=== PATIENT | male | born 1980 | race African-American/Black ===

== ENCOUNTER 2021-06-05 19:36 | Inpatient (IN) | payer OTHER ==
[2021-06-05] MEDS ORDERED: NITROGLYCERIN SUBLINGUAL 1/150 0.4 MG TAB SL ONE (20:07)
[2021-06-05] MEDS ORDERED: amLODIPine BESYLATE 5 MG TABLET (FP) PO ONE (20:08)
[2021-06-05] MEDS ORDERED: VALSARTAN 40 MG TABLET PO SCH (20:15)
[2021-06-05] MEDS ORDERED: VALSARTAN 80 MG TABLET ONE (21:19)
[2021-06-05] MEDS ORDERED: NITROGLYCERIN SUBLINGUAL 1/150 0.4 MG TAB SL PRN (21:20)
[2021-06-05 21:56] LABS: BASO % 1.1 % (0-2.0); EOS % 0.9 % (0-4.5); HEMATOCRIT 42.6 % (35.4-49); HEMOGLOBIN 13.3 GM/dL (11.7-16.9); MCH 20.3 pg (25.7-33.7); MCHC 31.3 g/dl (32.0-35.9); MEAN PLT VOLUME 8.4 fl (7.5-11.1); MONO % 8.2 % (3.8-10.2); NEUT % 67.8 % (42.8-82.8); PLATELET COUNT 231 10^3/uL (134-434); RBC 6.56 M/mm3 (4.00-5.60); WHITE BLOOD COUNT 11.3 K/mm3 (4.0-10.0)
[2021-06-05] MEDS ORDERED: HYDROCHLOROTHIAZIDE 50 MG TABLET PO ONE (21:59)
[2021-06-05] MEDS ORDERED: CARVEDILOL 25 MG TABLET (FP) PO ONE (22:00)
[2021-06-05 22:03] LABS: INR 1.09 (0.83-1.09); PROTHROMBIN TIME (PATIENT) 13.2 SEC (9.7-13.0)
[2021-06-05] MEDS ORDERED: CARVEDILOL 12.5 MG TABLET (FP) ONE (22:05)
[2021-06-05] MEDS ORDERED: ASPIRIN 81 MG CHEWABLE TABLETS PO ONE (22:06)
[2021-06-05] MEDS ORDERED: HYDROCHLOROTHIAZIDE 25 MG TABLET (FP) ONE (22:07)
[2021-06-05 22:17] LABS: ALBUMIN 3.8 g/dl (3.4-5.0); BLOOD UREA NITROGEN 18.6 mg/dL (7-18)
[2021-06-05] MEDS ORDERED: ASPIRIN 81 MG CHEWABLE TABLETS ONE (22:18)
[2021-06-05 22:20] LABS: CREATININE 1.5 mg/dL (0.55-1.3)
[2021-06-05 22:21] LABS: BILIRUBIN,TOTAL 0.5 mg/dL (0.2-1)
[2021-06-05 23:38] LABS: ANISOCYTOSIS 3+; MACROCYTOSIS 0; PLATELET ESTIMATE NORMAL
[2021-06-06 05:41] LABS: BASO % 0.5 % (0-2.0); EOS % 1.2 % (0-4.5); HEMATOCRIT 39.7 % (35.4-49); HEMOGLOBIN 12.8 GM/dL (11.7-16.9); LYMPH % 18.8 % (8-40); MCH 21.1 pg (25.7-33.7); MCHC 32.3 g/dl (32.0-35.9); MEAN CELL VOLUME 65.5 fl (80-96); MEAN PLT VOLUME 8.8 fl (7.5-11.1); MONO % 8.9 % (3.8-10.2); NEUT % 70.6 % (42.8-82.8); PLATELET COUNT 215 10^3/uL (134-434); RBC 6.06 M/mm3 (4.00-5.60); RDW 16.9 % (11.9-15.9); WHITE BLOOD COUNT 10.8 K/mm3 (4.0-10.0)
[2021-06-06 06:25] LABS: BASO % 0.4 % (0-2.0); EOS % 1.4 % (0-4.5); HEMATOCRIT 40.7 % (35.4-49); HEMOGLOBIN 12.9 GM/dL (11.7-16.9); LYMPH % 20.2 % (8-40); MCH 20.8 pg (25.7-33.7); MCHC 31.6 g/dl (32.0-35.9); MEAN CELL VOLUME 65.9 fl (80-96); MEAN PLT VOLUME 8.7 fl (7.5-11.1); MONO % 9.6 % (3.8-10.2); NEUT % 68.4 % (42.8-82.8); PLATELET COUNT 231 10^3/uL (134-434); RBC 6.17 M/mm3 (4.00-5.60); RDW 16.9 % (11.9-15.9); WHITE BLOOD COUNT 11.2 K/mm3 (4.0-10.0)
[2021-06-06 06:34] LABS: CALCIUM 8.7 mg/dL (8.5-10.1)
[2021-06-06 06:35] LABS: BLOOD UREA NITROGEN 19.5 mg/dL (7-18); MAGNESIUM 2.5 mg/dL (1.8-2.4)
[2021-06-06 06:38] LABS: CREATININE 1.5 mg/dL (0.55-1.3); PHOSPHOROUS 4.8 mg/dL (2.5-4.9)
[2021-06-06 08:16] LABS: PH,URINE 7.5 (5.0-8.0); URINE APPEARANCE CLEAR; URINE BILIRUBIN NEGATIVE (NEGATIVE); URINE COLOR YELLOW; URINE GLUCOSE (UA) NEGATIVE (NEGATIVE); URINE KETONE NEGATIVE (NEGATIVE); URINE LEUK ESTERASE NEGATIVE (NEGATIVE); URINE NITRITE NEGATIVE (NEGATIVE); URINE PROTEIN NEGATIVE (NEGATIVE); URINE UROBILINOGEN 0.2 mg/dL (0.2-1.0)
[2021-06-06] MEDS ORDERED: amLODIPine BESYLATE 5 MG TABLET (FP) ONE (09:52)
[2021-06-06] MEDS ORDERED: CARVEDILOL 12.5 MG TABLET (FP) ONE (09:53)
[2021-06-06] MEDS: CARVEDILOL 25 MG TABLET (FP) PO SCH ×2 (09:56→21:28)
[2021-06-06] MEDS: amLODIPine BESYLATE 5 MG TABLET (FP) PO SCH (09:56)
[2021-06-06] MEDS: HYDROCHLOROTHIAZIDE 12.5 MG CAPSULE (FP) PO SCH (09:56)
[2021-06-06] MEDS ORDERED: amLODIPine BESYLATE 5 MG TABLET (FP) PO SCH (10:00)
[2021-06-06] MEDS ORDERED: RHO(D) IMMUNE GLOBULIN 1,500 UNIT DISP.SYRIN IM ONE ×2 (13:06)
[2021-06-06 15:58] VITALS: BMI 35.9
[2021-06-06] MEDS: LISINOPRIL 20 MG TABLET PO SCH (21:28)
[2021-06-06] MEDS: ROSUVASTATIN CA 20 MG TABLET (FP) PO SCH (21:28)
[2021-06-06] MEDS: HEPARIN NA (PORCINE) 5,000 UNITS/ML 1ML VIAL SQ SCH (21:37)
[2021-06-06] MEDS ORDERED: LISINOPRIL 20 MG TABLET PO SCH (22:00)
[2021-06-07] MEDS: HEPARIN NA (PORCINE) 5,000 UNITS/ML 1ML VIAL SQ SCH ×3 (06:13→21:17)
[2021-06-07 09:40] LABS: BASO % 0.3 % (0-2.0); HEMATOCRIT 42.5 % (35.4-49); HEMOGLOBIN 13.6 GM/dL (11.7-16.9); LYMPH % 19.5 % (8-40); MCH 20.9 pg (25.7-33.7); MEAN CELL VOLUME 65.4 fl (80-96); MEAN PLT VOLUME 8.9 fl (7.5-11.1); MONO % 6.1 % (3.8-10.2); NEUT % 72.1 % (42.8-82.8); PLATELET COUNT 237 10^3/uL (134-434); WHITE BLOOD COUNT 9.1 K/mm3 (4.0-10.0)
[2021-06-07] MEDS: HYDROCHLOROTHIAZIDE 12.5 MG CAPSULE (FP) PO SCH (09:42)
[2021-06-07] MEDS: ASPIRIN COATED 81 MG TABLET.EC PO SCH (09:42)
[2021-06-07] MEDS: CARVEDILOL 25 MG TABLET (FP) PO SCH ×2 (09:42→21:17)
[2021-06-07] MEDS: amLODIPine BESYLATE 5 MG TABLET (FP) PO SCH (09:42)
[2021-06-07 10:23] LABS: CHLORIDE 101 mmol/L (98-107); SODIUM 138 mmol/L (136-145)
[2021-06-07 11:16] LABS: ANION GAP 6 MMOL/L (8-16); CO2 32 mmol/L (21-32)
[2021-06-07 11:28] LABS: CALCIUM 9.2 mg/dL (8.5-10.1)
[2021-06-07 11:29] LABS: ALBUMIN 3.5 g/dl (3.4-5.0); BLOOD UREA NITROGEN 21.4 mg/dL (7-18); GLUCOSE,RANDOM 112 mg/dL (74-106); MAGNESIUM 2.5 mg/dL (1.8-2.4)
[2021-06-07 11:30] LABS: CREATININE 1.4 mg/dL (0.55-1.3); PHOSPHOROUS 4.2 mg/dL (2.5-4.9); SGPT/ALT 23 U/L (13-61)
[2021-06-07 11:32] LABS: SGOT/AST 15 U/L (15-37); TOT PROT 7.5 g/dl (6.4-8.2)
[2021-06-07 11:33] LABS: ALK PHOS 44 U/L (45-117)
[2021-06-07 11:35] LABS: BILIRUBIN,TOTAL 0.8 mg/dL (0.2-1)
[2021-06-07] MEDS ORDERED: HYDROCHLOROTHIAZIDE 12.5 MG CAPSULE (FP) PO ONE (16:15)
[2021-06-07] MEDS: LISINOPRIL 20 MG TABLET PO SCH (21:17)
[2021-06-07] MEDS: ROSUVASTATIN CA 20 MG TABLET (FP) PO SCH (21:17)
[2021-06-08] MEDS: HEPARIN NA (PORCINE) 5,000 UNITS/ML 1ML VIAL SQ SCH ×3 (06:33→13:29)
[2021-06-08 07:34] LABS: HEMATOCRIT 41.6 % (35.4-49); HEMOGLOBIN 13.2 GM/dL (11.7-16.9); MCH 20.7 pg (25.7-33.7); MCHC 31.6 g/dl (32.0-35.9); MEAN CELL VOLUME 65.5 fl (80-96); MEAN PLT VOLUME 8.6 fl (7.5-11.1); PLATELET COUNT 203 10^3/uL (134-434); RBC 6.36 M/mm3 (4.00-5.60); WHITE BLOOD COUNT 9.5 K/mm3 (4.0-10.0)
[2021-06-08 07:49] LABS: BLOOD UREA NITROGEN 22.7 mg/dL (7-18)
[2021-06-08 07:50] LABS: MAGNESIUM 2.5 mg/dL (1.8-2.4)
[2021-06-08 07:53] LABS: CREATININE 1.4 mg/dL (0.55-1.3); PHOSPHOROUS 5.1 mg/dL (2.5-4.9)
[2021-06-08] MEDS: amLODIPine BESYLATE 5 MG TABLET (FP) PO SCH (09:01)
[2021-06-08] MEDS: CARVEDILOL 25 MG TABLET (FP) PO SCH (09:01)
[2021-06-08] MEDS: ASPIRIN COATED 81 MG TABLET.EC PO SCH (09:01)
[2021-06-08] MEDS ORDERED: HYDROCHLOROTHIAZIDE 25 MG TABLET (FP) PO SCH (10:00)
[2021-06-08 15:17] VITALS: BP 145/75; PULSE 74; TEMP 97.8
== END 2021-06-08 16:34 | disposition home or self-care (01) | DRG 305 ==
LOC: JER 19:36 → JERBED 23:14 → J4W 06-06 14:44
PROVIDERS: ADMIT Internal Medicine; ATTEND Internal Medicine
DX: I16.1 Hypertensive emergency (principal); N17.9 Acute kidney failure, unspecified; I31.3 Pericardial effusion (noninflammatory); I50.40 Unspecified combined systolic (congestive) and diastolic (congestive) heart failure; I13.0 Hypertensive heart and chronic kidney disease with heart failure and stage 1 through stage 4 chronic kidney disease, or unspecified chronic kidney disease; D50.9 Iron deficiency anemia, unspecified; Z91.14 Patient's other noncompliance with medication regimen; E66.9 Obesity, unspecified; N18.9 Chronic kidney disease, unspecified; E78.00 Pure hypercholesterolemia, unspecified; N28.1 Cyst of kidney, acquired; Z68.35 Body mass index [BMI] 35.0-35.9, adult
CPT/HCPCS: 36415; 71045-TC-FY; 71046-TC-FY; 71250-TC; 76775-TC; 80048; 80053; 80061; 81003; 82550; 82553; 82962; 83036; 83735; 83880; 83970; 84100; 84443; 84484; 85025; 85027; 85610; 85651; 86431; 93005; 93010; 93306-TC; 99285-25; C9803; J1644; U0003; U0005

== ENCOUNTER 2021-09-07 19:20 | Emergency (ER) | payer OTHER ==
[2021-09-07 19:32] VITALS: BP 137/88; PULSE 80; TEMP 98.8; BMI 34.0
== END 2021-09-07 19:58 | disposition home or self-care (01) ==
LOC: FER 19:20
DX: S09.91XA Unspecified injury of ear, initial encounter (principal)
CPT/HCPCS: 99283-25